=== PATIENT | male | born 1960 | race Caucasian/White ===

== ENCOUNTER 2020-03-18 14:56 | Emergency (ER) | payer OTHER ==
[2020-03-18 15:41] VITALS: TEMP 97.9; BMI 31.0
[2020-03-18 17:33] LABS: EOS % 6.1 % (0-4.5); HEMOGLOBIN 14.4 GM/dL (11.7-16.9); LYMPH % 16.9 % (8-40); MCH 30.5 pg (25.7-33.7); MCHC 33.5 g/dl (32.0-35.9); MEAN CELL VOLUME 91.2 fl (80-96); MEAN PLT VOLUME 9.6 fl (7.5-11.1); MONO % 7.9 % (3.8-10.2); NEUT % 68.1 % (42.8-82.8); PLATELET COUNT 386 K/MM3 (134-434); RBC 4.71 M/mm3 (4.00-5.60); RDW 13.5 % (11.9-15.9)
[2020-03-18 17:56] LABS: CHLORIDE 102 mmol/L (98-107); SODIUM 134 mmol/L (136-145)
[2020-03-18 17:58] LABS: ALBUMIN 3.4 g/dl (3.4-5.0); ANION GAP 5 MMOL/L (8-16); BLOOD UREA NITROGEN 28.7 mg/dL (7-18); CO2 27 mmol/L (21-32)
[2020-03-18 17:59] LABS: GLUCOSE,RANDOM 101 mg/dL (74-106)
[2020-03-18 18:01] LABS: SGPT/ALT 24 U/L (13-61)
[2020-03-18 18:02] LABS: CREATININE 1.5 mg/dL (0.55-1.3); SGOT/AST 15 U/L (15-37)
[2020-03-18 18:03] LABS: BILIRUBIN,TOTAL 0.3 mg/dL (0.2-1); TOT PROT 7.7 g/dl (6.4-8.2)
[2020-03-18 18:04] LABS: ALK PHOS 103 U/L (45-117)
[2020-03-18 19:28] LABS: EPI CELLS 4 /uL (0-25.1); HYALINE CASTS 0 /uL (0-3.1); PH,URINE 6.5 (5.0-8.0); URINE APPEARANCE CLOUDY; URINE BACTERIA 19 /uL (0-1359); URINE BILIRUBIN NEGATIVE (NEGATIVE); URINE COLOR YELLOW; URINE GLUCOSE (UA) NEGATIVE (NEGATIVE); URINE KETONE NEGATIVE (NEGATIVE); URINE LEUK ESTERASE NEGATIVE (NEGATIVE); URINE NITRITE NEGATIVE (NEGATIVE); URINE PROTEIN 3+ (NEGATIVE); URINE RBC 120 /uL (0-23.9); URINE UROBILINOGEN 0.2 mg/dL (0.2-1.0); URINE WBC 3 /uL (0-25.8)
[2020-03-19 01:24] VITALS: BP 166/92; PULSE 84
== END 2020-03-18 20:07 | disposition home or self-care (01) ==
LOC: JER 14:56
DX: R03.0 Elevated blood-pressure reading, without diagnosis of hypertension (principal)
CPT/HCPCS: 36415; 71045-TC-FY; 80053; 81003; 84484; 85025; 93005; 93010; 99284-25